=== PATIENT | female | born 2000 | race Caucasian/White ===

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

== ENCOUNTER 2021-07-21 00:04 | Emergency (ER) | payer OTHER, SELFPAY ==
[2021-07-21] VITALS (9 sets, daily range): BP systolic 117–138; BP diastolic 75–77; PULSE 58–82; RESP 15–20; TEMP 36.8; O2SAT 98–100
--- NOTE | ~2021-07-21 | XR_ITS ---
EXAMINATION: XR chest 2V 07/21/2021 00:48 INDICATION: Chest pain PROCEDURE: 2 view chest COMPARISON: No prior studies for comparison. FINDINGS: The lungs are clear. The cardiomediastinal silhouette is within normal limits. There are no pleural effusions. There is no pneumothorax suspected. IMPRESSION: 1: NO ACUTE CARDIOPULMONARY DISEASE. Reviewed, dictated and finalized at location A.
--- NOTE | 2021-07-21 00:09 | ECG_ITS ---
Measurements Intervals [place] Rate: 79 P: 21 DC: 151 QRS: 32 QRSD: 83 T: 36 QT: 361 QTc: 416 Interpretive Statements SINUS RHYTHM NORMAL ECG NO PREVIOUS ECG AVAILABLE FOR COMPARISON Electronically Signed On 07-21-2021 9:29:20 CDT by Eric Dias M.D.
--- NOTE | 2021-07-21 00:25 | ED.CHESTPAIN ---
HPI - Chest Pain General Chief Complaint: Chest Pain Stated Complaint: Chest pain Time Seen by Provider: 07/21/21 00:07 Source: patient, family and RN notes reviewed History of Present Illness HPI narrative: 21-year-old female presented with [facility] for evaluation of left-sided chest pain that does radiate to her left arm. Patient states the pain is sharp and started approximately noon today. Patient states the pain occurred when she was at rest. Patient denies any change of pain with activity or with breathing. Patient states the pain does radiate to her left arm. Patient denies any radiation to her neck or to her back. Patient denies any significant past medical history. Patient denies any prior history of PE or DVT. Patient does take home. Patient denies any associated shortness of breath. Patient denies any nausea vomiting diarrhea. Related Data Allergies Allergy/AdvReac Type Severity Reaction Status Date / Time No Known Allergies Allergy Verified 07/21/21 00:15 Review of Systems Review of Systems: CONSTITUTIONAL: Denies fever, chills, or sweats. EYES: Denies visual changes, redness, or discharge. ENT: Denies rhinorrhea, congestion, sore throat, or otalgia. CARDIOVASCULAR: Left-sided chest pain RESPIRATORY: Denies cough or dyspnea. GASTROINTESTINAL: Denies abdominal pain, nausea, vomiting, or diarrhea. GENITOURINARY: Denies dysuria or hematuria. SKIN: Denies rash or itching. MUSCULOSKELETAL: Denies back pain, joint pain, or myalgia. NEUROLOGIC: Denies headache, numbness, or weakness. Exam Narrative: APPEARANCE: Well appearing, no pain, no distress, well-nourished. HEAD: normocephalic, atraumatic. EYES: PERRLA/EOMI, conjunctivae clear. NOSE: Normal no drainage THROAT: Pharynx clear, no exudate. NECK: Supple. No adenopathy, no masses. RESPIRATORY: Airway patent, respirations nonlabored. Clear to auscultation bilaterally, no rales, rhonchi, wheezing. CARDIOVASCULAR: Regular rate and rhythm without murmurs rubs or gallops. ABDOMINAL: Soft, nontender, nondistended, normal bowel sounds MUSCULOSKELETAL: Moves all extremities. Strength/ROM intact, No edema, No calf tenderness. NEURO: Alert. Cranial nerves II through XII intact. SKIN: Warm, dry. Normal Color Course Course Emergency Course: Patient did feel improved with treatment. Patient was updated on the results of the work-up. All questions and concerns were addressed. Patient EKG showed normal sinus rhythm with no evidence of acute STEMI. Patient's troponin was negative. Patient has had left-sided chest pain for greater than 12 hours. Patient D-dimer was not elevated. Suspect musculoskeletal versus pleurisy for the source of the patient's pain. Patient was educated on treatment at home and on the importance of close follow-up with her primary care physician. All questions concerns were addressed. Patient was in no distress time of discharge from the emergency department. Vital Signs Vital signs: Vital Signs Temperature 98.2 F 07/21/21 00:10 Pulse Rate 82 07/21/21 00:10 Respiratory Rate 18 07/21/21 00:10 Blood Pressure 135/75 07/21/21 00:10 Pulse Oximetry 100 07/21/21 00:10 Temperature 98.2 F 07/21/21 00:10 Pulse Rate 60 07/21/21 01:22 Respiratory Rate 16 07/21/21 01:22 Blood Pressure 138/77 07/21/21 00:16 Pulse Oximetry 99 07/21/21 01:22 MDM - Chest Pain Lab Data Result diagrams: 07/21/21 00:20 07/21/21 00:20 Labs: Lab Results 07/21/21 07/21/21 07/21/21 Range/Units 00:20 00:20 00:20 WBC 10.0 (4.5-10.0) K/mm3 RBC 4.56 (4.2-5.4) M/mm3 Hgb 13.7 (12.0-15.0) g/dL Hct 40.0 (37.0-47.0) % MCV 87.7 (80-100) fl MCH 30.0 (26-34) pg MCHC 34.3 (32-36) g/dl RDW 13.3 (11.5-14.5) % Plt Count 346 (150-375) k/mm3 MPV 9.8 (7.4-10.4) fl Immature Gran % (Auto) 0.3 (0-0.5) % Neut % (Auto) 53.1 (45.5-73.1) % Lymph % (Auto)
[2021-07-21 00:27] LABS: Basophils Absolute Auto 0.1 K/mm3 (0.0-0.1); Basophils Percent Auto 0.5 % (0.2-1.2); Eosinophils Absolute Auto 0.2 K/mm3 (0-0.3); Eosinophils Percent Auto 1.9 % (0-4.4); Hemoglobin 13.7 g/dL (12.0-15.0); Immature Granulocyte Absolute 0.03 K/mm3 (0.00-0.031); Immature Granulocyte Percent A 0.3 % (0-0.5); Lymphocytes Absolute Auto 3.38 K/mm3 (0.9-3.2); Mean Corpuscular HGB Conc 34.3 g/dl (32-36); Mean Corpuscular Volume 87.7 fl (80-100); Mean Platelet Volume 9.8 fl (7.4-10.4); Monocytes Percent Auto 10.2 % (2.6-8.5); Neutrophils Absolute Auto 5.3 K/mm3 (1.3-6.7); Neutrophils Percent Auto 53.1 % (45.5-73.1); Platelet Count Result 346 k/mm3 (150-375); Red Blood Count 4.56 M/mm3 (4.2-5.4); Red Cell Distribution Width 13.3 % (11.5-14.5)
[2021-07-21 00:40] LABS: Alanine Aminotransferase 20 U/L (4-35); Albumin Level 4.5 g/dL (3.5-5.1); Alkaline Phosphatase 78 U/L (38-126); Anion Gap 7 mmol/L (8-16); Aspartate Amino Transferase 32 U/L (14-36); Bilirubin,Total < 0.1 mg/dL (0.2-1.3); Blood Urea Nitrogen 15 mg/dL (7-17); Calcium 9.7 mg/dL (8.4-10.2); Carbon Dioxide 27 mmol/L (22-30); Chloride 106 mmol/L (98-107); Estimated CRCL calculation 105 ml/min; Estimated Glomerular Filt Rate > 60; Glucose 106 mg/dL (65-110); Potassium 3.5 mmol/L (3.4-5.0); Sodium 140 mmol/L (137-145)
[2021-07-21 00:50] LABS: Troponin I < 0.012 ng/mL (0.000-0.034)
[2021-07-21 00:50] LABS: D Dimer 0.35 ug/mL (<0.48)
[2021-07-21 00:58] LABS: Lipase 135 U/L (23-300)
[2021-07-21 01:25] LABS: Add Urine Microscopic? YES; Appearance Urine Cloudy (Clear); Bilirubin Urine Negative (Negative); Blood Urine Negative (Negative); Color Urine Yellow (Yellow); Glucose Urine UA Negative (Negative); Ketones Urine Negative (Negative); Leukocyte Esterase Ur Trace LEU/UL (Negative); Mucus Urine Rare /lpf; Nitrate Urine Negative (Negative); Protein Urine Negative (Negative); RBC Urine 0-2 /hpf (0-2); Specific Grav Ur 1.014 (1.001-1.035); Squamous Epithelial Cell Urine Few /hpf (Few); Urobilinogen Urine Negative mg/dL (<2.0)
[2021-07-21] MEDS: KETOROLAC 15 MG/ML VIAL (*BKC) IV PUSH (02:01)
== END 2021-07-21 02:15 | disposition home or self-care (01) ==
PROVIDERS: Emergency Provider Emergency Medicine; PCP Pediatrics
DX: R07.9 Chest pain, unspecified (principal)
CPT/HCPCS: 36415; 71046; 80053; 81001; 81025; 83690; 84484; 85025; 85380; 93005; 96374; 99284; J1885

== ENCOUNTER 2024-04-28 20:05 | Emergency (ER) | payer OTHER, SELFPAY ==
[2024-04-28 20:36] VITALS: BP 135/73; PULSE 100; RESP 18; TEMP 36.6; O2SAT 100
--- NOTE | 2024-04-29 00:04 | ED.SKABFB ---
HPI - Skin/Abscess/Foreign Bdy General Chief complaint: Skin/Abscess/Foreign Body Stated complaint: bacterial infection Time Seen by Provider: 04/28/24 23:24 Source: patient Mode of arrival: ambulatory Limitations: no limitations History of Present Illness HPI narrative: Patient is a 24-year-old female who presents the ED with report of vaginal pain. Patient reports she received her 1st Martiniquais wax 4 days ago. She states the wax was very painful and seem to be overly hot. She developed blisters in her vulvar region 2 days ago. She states some of the blisters have burst and are now draining purulent material. She is concerned they are infected. She states no lesions are very painful. She has never had lesions like this before. She has had low-grade fever at home. Denies vaginal bleeding. Patient is 2 months , currently breast feeding. Has been taking ibuprofen for the pain. Related Data Allergies Allergy/AdvReac Type Severity Reaction Status Date / Time No Known Allergies Allergy Verified 07/21/21 00:15 Review of Systems Review of Systems: All systems reviewed & are unremarkable except as noted in HPI. All systems reviewed & are unremarkable except as noted in HPI and below Exam Narrative: GENERAL: Well appearing, obese with BMI of 32.7, non-toxic, in no acute distress. HEAD: Normocephalic, atraumatic. RESPIRATORY: Airway patent, respirations nonlabored. CARDIOVASCULAR: Regular rate and rhythm PELVIC: Numerous circular ulcerated lesions in various stages of healing in vulvar region, along inner labia minora mucosa, localized around clitoris, and a few lesions along inferior labia majora. Some lesions are beginning to scab over, others with active layer of white/yellow purulent material over ulcers, very focally tender to palpation. No bleeding. MUSCULOSKELETAL: Moves all extremities. No gross deformities. SKIN: Warm, dry, normal color. NEURO: A&O X3. Speech clear. PSYCHIATRIC: Appropriate mood and affect. Normal interaction. Course Vital Signs Vital signs: Vital Signs Temperature 97.9 F 04/28/24 20:36 Pulse Rate 100 04/28/24 20:36 Respiratory Rate 18 04/28/24 20:36 Blood Pressure 135/73 04/28/24 20:36 Pulse Oximetry 100 04/28/24 20:36 Oxygen Delivery Room Air 04/28/24 20:36 Temperature 97.9 F 04/28/24 20:36 Pulse Rate 100 04/28/24 20:36 Respiratory Rate 18 04/28/24 20:36 Blood Pressure 135/73 04/28/24 20:36 Pulse Oximetry 100 04/28/24 20:36 Oxygen Delivery Room Air 04/28/24 20:36 MDM - Skin/Abscess/Foreign Bdy MDM Narrative Medical decision making narrative: Patient presented to ED with vaginal pain and blistering after recent Martiniquais wax. Unfortunately, exam seems most consistent with genital herpes. This is patient's 1st episode. Discussed this with patient and significant other at bedside at length. Will be started on valacyclovir. Herpes swab was obtained from active lesions to send to lab for Dx. Given purulent material with recent wax/disruption of skin barrier, will cover for potential infectious process with abx. Patient is currently . Advised to continue Tylenol and ibuprofen for pain, also recommended warm compresses/sitz baths. Offered to prescribe pain medication, however patient declined. Recommended close follow-up with PCP/OBGYN for further evaluation. Discussed sexual transmission and necessary precautions. Given return precautions. She is in agreement with plan. All questions answered. Discharged in stable condition. Medical Records Attestation: I reviewed the patient's medical records. Lab Data Labs: Lab Results 04/29/24 Range/Units 00:24 Herpes Virus Source Pending Herpes Simplex Culture Pending HSV I DNA PCR Pending HSV II DNA PCR Pending HSV (PCR) Source Pending Discharge Plan Discharge Clinical Impression: Genital HSV Qualifiers: Herpes simplex infection site: vulvovaginitis Qualified Code(s): A60.04 - Herpesviral vulvovaginitis Patient Disposition: Home, Self-Care Condition: Stable Instructions: Antibiotic Form, Genital Herpes Infection (ED), Abscess (ED), Sitz Bath (DC) Additional Instructions: Take antibiotics as prescribed for the next 1 week. It is recommended you take a probiotic with this antibiotic to avoid GI irritation. You may continue the probiotic for 1-2 weeks after finishing the antibiotics. Take antiviral medication as prescribed for the next 1 week. Recommend warm compresses or frequent sitz baths throughout the day to help with irritation. Take Tylenol and ibuprofen as needed for pain. Follow-up closely with your primary care doctor or OBGYN for further evaluation. Genital herpes can be sexually transmitted. It is advised that you do not partake in any sexual activity while you have active lesions. You need to be use condoms or other barrier protection to avoid transmission to partners. Patient Language: Slovenian Prescriptions: New clindamycin HCl 150 mg capsule 450 mg PO TID 7 Days Qty: 63 0RF valacyclovir 1 gram tablet 1,000 mg PO BID 10 Days Qty: 20 0RF Follow-up/Referrals: UNKNOWN,DOCTOR [Primary Care Provider] - Time of Disposition: 00:31
[2024-04-29] MEDS: valACYclovir HCL 500 MG TABLET 1000 MG PO (00:26)
[2024-04-29] MEDS: IBUPROFEN 600 MG TABLET PO (00:27)
[2024-04-29] MEDS: CLINDAMYCIN HCL 150 MG CAP 450 MG PO (00:28)
[2024-04-29] MEDS: LIDOCAINE 2% GEL UROJET 10 ML PKG MUCOUS MEM (00:30)
[2024-05-01 21:03] LABS: Herpes Simplex Type 1 DNA PCR Detected (Not Detected); Herpes Simplex Type 2 DNA PCR Not Detected (Not Detected)
== END 2024-04-29 00:38 | disposition home or self-care (01) ==
PROVIDERS: Emergency Provider Physician Assistant
DX: A60.04 Herpesviral vulvovaginitis (principal)
CPT/HCPCS: 36415; 87070; 87075; 87140; 87205; 87255; 87529; 99283; A9270

== ENCOUNTER 2024-04-30 15:39 | Emergency (ER) | payer OTHER, SELFPAY ==
[2024-04-30 17:00] VITALS: BP 108/68; PULSE 102; RESP 16; TEMP 36.4; O2SAT 99
--- NOTE | 2024-04-30 18:52 | ED_ITS ---
HPI - Skin/Abscess/Foreign Bdy General Chief complaint: Skin/Abscess/Foreign Body Stated complaint: Vaginal Irritation Time Seen by Provider: 04/30/24 18:30 Source: patient, RN notes reviewed and old records reviewed Mode of arrival: ambulatory Limitations: no limitations History of Present Illness HPI narrative: 24 year old female who presents to express care with complaints of having Afghan wax done about 4 days ago and continues to have acute pain to the labia region with blisters and swelling with some drainage from blisters. Patient reports that she was seen in the emergency room and was giving Valtrex, Clindamycin and swabbed for HSV infection. Patient reports that she never has has any herpetic lesions before. Patient states that she has to sit in tub of water to even urinate. Patient reports that they offered pain medication last night in ED and she denied medication but wants some today. Patient is breast feeding 2 month old and instructed patient she would have to pump and dump breast milk. Patient reports that they do have some stored breast milk. MD complaint: other (swelling and blistering of labia with pain) Onset (ago): day(s) (4) Severity scale (1-10): 6 Pain Consistency: constant Treatments prior to arrival: other (Ibuprofen, Valtrex and Clindamycin) Related Data Allergies Allergy/AdvReac Type Severity Reaction Status Date / Time No Known Allergies Allergy Verified 04/30/24 17:58 Review of Systems Review of Systems: CONSTITUTIONAL: Denies fever, chills, or sweats. CARDIOVASCULAR: Denies chest pain, palpitations, or edema. RESPIRATORY: Denies cough or dyspnea. GASTROINTESTINAL: Denies abdominal pain, nausea, vomiting SKIN: Reports redness and swelling to vaginal area and labia with blistering draining lesions noted on labia majora with acute pain to site.. MUSCULOSKELETAL: Denies myalgia. NEUROLOGIC: Denies headache, numbness All systems reviewed & are unremarkable except as noted in HPI and below PMFSH Social History Social History Smoking status: Never smoker Alcohol use details: no alcohol use Substance use: never Living arrangements: with family Gender identity (if verbalized by the patient): Female Comments At time of signature, agree with nursing past medical, surgical, social and family history. There is no relevant family history pertinent to the presenting complaint Exam Narrative: GENERAL: Well-appearing, well-nourished, and in some acute distress. HEAD: Normocephalic, atraumatic. EYES: PERRLA and EOMI. ENT: Nares clear, no rhinorrhea or epistaxis. Mucous membranes moist. NECK: Supple.no lymphadenopathy CHEST: Clear to auscultation. No respiratory distress.SAO2 99% on room air HEART: Regular rate and rhythm. No murmur heard. Normal peripheral pulses. ABDOMEN: Soft, nontender, nondistended, normal active bowel sounds. EXTREMITIES: Normal range of motion. No edema. SKIN: Warm, dry. Erythema, induration, tenderness, blistering lesions on labia majora with some clear drainage noted pain to area, is taking antibiotic and Valtrex that was ordered in ED last evening. NEURO: No focal deficits. Alert and oriented x3. Course Course Emergency Course: Patient is aware of diagnosis, understands and agrees to treatment plan. Anticipatory guidance given. Patient agrees to follow-up as directed and is aware of reasons to seek care at the emergency department. Portions of this record may have been created with voice recognition software Level of Care: Express Care Visit Vital Signs Vital signs: Vital Signs Temperature 36.4 C 04/30/24 17:00 Pulse Rate 102 H 04/30/24 17:00 Respiratory Rate 16 04/30/24 17:00 Blood Pressure 108/68 04/30/24 17:00 Pulse Oximetry 99 04/30/24 17:00 Temperature 36.4 C 04/30/24 17:00 Pulse Rate 102 H 04/30/24 17:00 Respiratory Rate 16 04/30/24 17:00 Blood Pressure 108/68 04/30/24 17:00 Pulse Oximetry 99 04/30/24 17:00 Reviewed MDM - Skin/Abscess/Foreign Bdy MDM Narrative Medical decision making narrative: Does not appear at this time to be erythema multiforme, bullous, SJS, TEN; no evidence at this time to suggest RMSF, endocarditis or Lyme disease; patient looks well, nontoxic and is tolerating oral intake; no neurologic signs or symptoms; no headache, photophobia or neck pain; afebrile; appropriate for initial outpatient treatment; discussed the importance of follow-up, patient agrees. Patient does not have history of penetrating trauma, laceration, blunt trauma, recent surgery, immunosuppression, malignancy, obesity, alcoholism, corticosteroid use. Question cellulitis, necrotizing soft tissue infection, abscess. Differential Diagnosis Differential diagnosis: Likely abscess of skin or subcutaneous tissue, cellulitis, contact dermatitis and other (blisters and swelling to labia, blistering of tissues of labia) Medical Records Attestation: I reviewed the patient's medical records. Critical Care Time Critical Care Time Critical Care Time: No Discharge Plan Discharge Clinical Impression: Cellulitis Qualifiers: Site of cellulitis: other site Qualified Code(s): L03.818 - Cellulitis of other sites Patient Disposition: Home, Self-Care Condition: Stable Instructions: Cellulitis (ED) Additional Instructions: Sitz baths twice daily sit in [place] warm water continue antibiotics as prescribed Valtrex as prescribed triamcinolone ointment twice daily to perineal area for comfort measure [place] every 6 hours # 10. must Pump and dump monitor for any fevers follow-up with PCP 7-10 days or sooner if needed Patient Language: Cymro Prescriptions: New hydrocodone-acetaminophen 5-325 mg tablet 1 tablet PO Q6H PRN (Reason: pain) Qty: 10 0RF triamcinolone acetonide 0.1 % ointment 1 applic topical BID Qty: 80 0RF No Action clindamycin HCl 150 mg capsule 450 mg PO TID 7 Days Qty: 63 0RF valacyclovir 1 gram tablet 1,000 mg PO BID 10 Days Qty: 20 0RF Follow-up/Referrals: PHYSICIAN,DIRECTOR [employer] [Primary Care Provider] - Time of Disposition: 19:08 Quality [place] Coma Scale Eyes: Open Verbal: Oriented and Alert Motor: Follows Commands [place] Coma Total Score: 15
== END 2024-04-30 19:16 | disposition home or self-care (01) ==
PROVIDERS: Emergency Provider Registered Nurse
DX: L03.818 Cellulitis of other sites (principal)
CPT/HCPCS: 99213; G0463